=== PATIENT | female | born 1985 | race Hispanic/Latino ===

== ENCOUNTER 2018-08-29 18:02 | Emergency (ER) | payer OTHER ==
[2018-08-29 18:22] VITALS: TEMP 98.4
[2018-08-29] MEDS ORDERED: Aspirin 325 mg EC Tablets PO STA (18:38)
[2018-08-29 18:54] LABS: BASO % 0.3 % (0.0-2.0); EOS % 0.2 % (0.0-4.0); LYMPH # 3.2 K/uL (1.0-4.3); LYMPH % 37.3 % (20.0-40.0); MEAN CELL VOLUME 90.2 fL (81.0-99.0); MEAN CORPUSCULAR HEMOGLOBIN 30.4 pg (27.0-31.0); MEAN CORPUSCULAR HGB CONC 33.7 g/dL (33.0-37.0); MEAN PLATELET VOLUME 8.8 fL (7.2-11.7); MONO # 0.7 K/uL (0.0-0.8); MONO % 8.3 % (0.0-10.0); NEUT # 4.6 K/uL (1.8-7.0); NEUT % 53.9 % (50.0-75.0); RBC 4.6 Mil/uL (3.80-5.20); RED CELL DISTRIBUTION WIDTH 12.7 % (11.5-14.5); WHITE BLOOD COUNT 8.5 K/uL (4.8-10.8)
[2018-08-29] MEDS ORDERED: Aspirin 325 mg EC Tablets PO ONE (18:55)
[2018-08-29 19:08] LABS: SQUAMOUS EPITHIAL 3 /hpf (0-5); URINE BILIRUBIN NEGATIVE (NEGATIVE); URINE BLOOD NEGATIVE (NEGATIVE); URINE CLARITY Clear (Clear); URINE COLOR Yellow (YELLOW); URINE GLUCOSE (UA) NORMAL (Normal); URINE LEUKOCYTE ESTERASE NEG Leu/uL (Negative); URINE PROTEIN NEGATIVE (NEGATIVE); URINE UROBILINOGEN NORMAL mg/dL (0.2-1.0)
[2018-08-29 19:11] LABS: ALB/GLOB RATIO 1.6 (1.0-2.1); ALBUMIN 4.8 g/dL (3.5-5.0); ALT/SGPT 18 U/L (9-52); AST/SGOT 29 U/L (14-36); BLOOD UREA NITROGEN 11 mg/dL (7-17); CALCIUM 9.3 mg/dl (8.6-10.4); GFR NON-AFRICAN AMERICAN > 60
--- NOTE | 2018-08-29 19:16 | C.PDOC ---
History Of Present Illness 32 year old female presents to the ED for evaluation of vague left upper chest discomfort which began around 3 days ago. Patient reports she has had an upper respiratory infection for two weeks. She also reports a tooth extraction around 9 months ago. Patient was referred by Dr. Freeman (PMD) for evaluation after patient had an abnormal EKG. Patient denies prolonged immovable positions that might provoke DVT. Patient denies history of smoking or oral contraceptive use. Time Seen by Provider: 08/29/18 18:36 Chief Complaint (Nursing): Chest Pain History Per: Patient History/Exam Limitations: no limitations Onset/Duration Of Symptoms: Days (3) Current Symptoms Are (Timing): Still Present Additional History Per: Patient Past Medical History Reviewed: Historical Data, Nursing Documentation, Vital Signs Vital Signs: Last Vital Signs Temp 98.4 F 08/29/18 18:17 Pulse 97 H 08/29/18 18:17 Resp 12 08/29/18 18:17 BP 131/84 08/29/18 18:17 Pulse Ox 100 08/29/18 18:17 - Medical History PMH: No Chronic Diseases Surgical History: No Surg Hx Family History: States: Unknown Family Hx - Social History Hx Tobacco Use: No Hx Alcohol Use: Yes Hx Substance Use: No - Immunization History Hx Tetanus Toxoid Vaccination: No Hx Influenza Vaccination: No Hx Pneumococcal Vaccination: No Review Of Systems Cardiovascular: Positive for: Other (left upper chest discomfort ) Physical Exam - Physical Exam Appears: Non-toxic, No Acute Distress, Other (white female, no apparent distress ) Skin: Normal Color, Warm, Dry Head: Atraumatic, Normacephalic Eye(s): bilateral: Normal Inspection Oral Mucosa: Moist Neck: Supple Chest: Symmetrical, No Deformity, No Tenderness, Other (excavated chest ) Cardiovascular: Rhythm Regular, Murmur (pronounced s2 with systolic murmur in the mitral and pulmonic foci) Respiratory: Normal Breath Sounds, No Rales, No Rhonchi, No Wheezing Extremity: Normal ROM, Capillary Refill (less than 2 seconds ) Neurological/Psych: Oriented x3, Normal Speech, Normal Cognition ED Course And Treatment - Laboratory Results Result Diagrams: 08/29/18 18:51 08/29/18 18:51 Lab Interpretation: Normal (d-dimer neg, trop/bnp neg. ua neg.) Urine POC: Negative ECG: Interpreted By Me, Viewed By Me ECG Rhythm: Sinus Rhythm Interpretation Of ECG: Normal sinus rhythm at rate 83bpm. T wave inversions in leads III and aVF. NO prior EKG to compare Rate From EC O2 Sat by Pulse Oximetry: 100 (on RA) Pulse Ox Interpretation: Normal - Radiology CXR: Interpreted by Me (right lower lung infiltrate. right heart border is blurred, ? related to cavum sternum) Progress Note: Flu swab is negative. D-dimer is negative. Patient will be treated empirically for PE with Lovenox SC and for atypical pneumonia with Zithromax IV and Rocephin IVP. IV fluids bolus administered. On re-evaluation, there is no significant change. Reevaluation Time: 23:23 Reassessment Condition: Improved - Physician Consult Information Outcome Of Conversation: 0000: d/w Dr. Solorio- Medicine [facility]- ok to admit Medical Decision Making Medical Decision Making: URI 1-2 weeks ago now with vague chest discomfort ? RLL PNA on CXR but CT for PE protocol shows no PNA/PE Empirically started on Rocephin/Azithro in ED, but further ABX may not be required loud P2 and t^ inversions on EKG (no prior to compare) may relate to pulmonary hypertension (PE not the cause as PE study neg) emprically started on Lovenox Consider Card Echo in AM anxious, ? GERD consider repeat EKG and Maalox if chest discomfort recurrs as inpt 0030: re-eval pt prefers to d/c home and opt f/u with her PMD and cardio/GI as referred. Disposition Doctor Will See Patient In The: Office Counseled Patient/Family Regarding: Studies Performed, Diagnosis - Disposition Disposition: HOSPITALIZED Disposition Time: 00:31 Condition: GOOD - Clinical Impression Clinical Impression: Chest discomfort, Abnormal EKG - Scribe Statement The provider has reviewed the documentation as recorded by the Scribe (Anna Sales) Provider Attestation: All medical record entries made by the Scribe were at my direction and personally dictated by me. I have reviewed the chart and agree that the record accurately reflects my personal performance of the history, physical exam, medical decision making, and the department course for this patient. I have also personally directed, reviewed, and agree with the discharge instructions and disposition.
[2018-08-29 19:18] LABS: BARBITURATES, UR NEGATIVE (NEGATIVE); BENZODIAZEPINES, UR NEGATIVE (NEGATIVE); OPIATES, UR NEGATIVE (NEGATIVE); PHENCYCLIDINE, UR NEGATIVE (NEGATIVE)
[2018-08-29 19:21] LABS: B-TYPE NATRIURETIC PEPTIDE 85.7 pg/mL (0-450)
[2018-08-29] MEDS ORDERED: Enoxaparin 40 mg Syringe SC STA (19:26)
[2018-08-29] MEDS ORDERED: Sodium Chloride 0.9% 1,000 ML IV ONE (19:36)
[2018-08-29] MEDS ORDERED: Sodium Chloride 0.9% 1,000 ML ONE (19:42)
[2018-08-29] MEDS ORDERED: Enoxaparin 80 mg Syringe ONE (19:42)
[2018-08-29] MEDS ORDERED: cefTRIAXone IV 1 gm in Dextros 50 ML IVPB ONE (20:16)
[2018-08-29] MEDS ORDERED: Azithromycin 500 MG in Sodium Chloride 0.9% 250 ML IV STA (20:17)
[2018-08-29] MEDS ORDERED: Azithromycin 500mg/250ML NS 500 MG/250 ML BAG IVPB ONE (20:30)
[2018-08-29] MEDS ORDERED: cefTRIAXone 1 gm 1 GM/100 ML BAG IVPB ONE (20:31)
[2018-08-29] MEDS ORDERED: Iodixanol 320 MG/ML 100 ML BOTTLE IV ONE (20:45)
[2018-08-29 23:58] VITALS: BP 110/70; PULSE 72; RESP 14
[2018-08-30 00:31] VITALS: O2SAT 100
--- NOTE | 2018-08-30 10:23 | CT ---
Date of service: 08/29/2018 CTA chest PE protocol Indication: cp Technique: Contiguous axial images were obtained through the chest with intravenous contrast enhancement. Sagittal and coronal reconstructions were generated and reviewed. This CT exam was performed using 1 or more of the following dose reduction techniques: Automated exposure control, adjustment of the MAA and/or kV according to patient size, and/or use of iterative reconstruction technique. IV contrast: 100 mL Visipaque IV Radiation dose (DLP): 244.32 MGy-cm. Comparison: Chest x-ray performed 08/29/18 Findings: Visualized portions of the inferior thyroid gland appear unremarkable. The mediastinal and hilar vascular structures appear within normal limits. The heart appears within normal limits of size. No large central or segmental pulmonary embolus evident. No focal consolidation. No pleural effusion. No pneumothorax. No suspicious pulmonary nodules measuring greater than 5 mm. Limited visualized portions of the upper abdomen appear grossly unremarkable. No acute osseous abnormality is detected. Impression: No large central or segmental pulmonary embolus identified. Preliminary impression was provided by [employer].
--- NOTE | 2018-08-30 10:34 | RAD ---
Chest x-ray two views HISTORY: Shortness of breath. COMPARISON: None available. Findings: Mild venous congestion. Right hilar opacity. Osseous structures grossly preserved. Impression: Mild venous congestion. Right hilar opacity. Clinical correlation to exclude underlying infiltrate.
--- NOTE | 2018-08-30 19:01 | CARD ---
APPROVED REPORT Date of service: 08/29/2018 EKG Measurement Heart [id number] <Conclusion> Normal sinus rhythm with sinus arrhythmia Incomplete right bundle branch block Possible Right ventricular hypertrophy t wave in inferior wall,poss ischemic. Abnormal ECG
== END 2018-08-30 00:46 | disposition home or self-care (01) ==
LOC: C.ER 18:02 → C.9E 23:33 → UNDOADMOB 23:33 → C.9E 08-30 00:09 → C.6T 08-30 00:09 → C.ER 08-30 00:46
DX: R07.89 Other chest pain (principal); R94.31 Abnormal electrocardiogram [ECG] [EKG]
CPT/HCPCS: 71046; 71275; 80053; 80324; 80345; 80346; 80349; 80353; 80358; 80361; 81001; 83880; 83992; 84484; 84703; 85025; 85378; 87040; 87804; 93005; 96361; 96365; 96372; 96375; 99284; J0456; J0696; J1650; J7030; J7050; Q9967